=== PATIENT | female | born 1990 | race Caucasian/White ===

== ENCOUNTER 2019-11-21 01:53 | Inpatient (IN) ==
[2019-11-21 02:50] LABS: Hemoglobin 12.3 gm/dL (12.5-16.0); Mean Cell Volume 89.7 fl (78-100); Mean Corpuscular Hemoglobin 31.5 pg (27-31); Mean Corpuscular Hgb Conc 35.1 g/dl (32-36); Mean Platelet Volume 12.2 fl (8-12.5); Neutrophil # 8.2 K/mm3 (1.3-6.0); Neutrophil % 73.9 % (42-75.0); Platelet Count 152 K/mm3 (150-450); Red Cell Distribution Width 12.2 % (11.5-14.0); White Blood Count 11.1 K/mm3 (4.0-10.5)
[2019-11-21 03:05] LABS: INR 0.93 INR (0.92-1.08); Partial Thrombolplastin Time 22.6 Seconds (24-32); Prothrombin Time (Patient) 9.2 Seconds (9.1-10.7)
[2019-11-21] MEDS ORDERED: RINGER'S SOLUTION,LACTATED 1,000 ML IV ONE ×2 (03:24→10:15)
[2019-11-21] MEDS ORDERED: ONDANSETRON 4 MG TAB.RAPDIS PO PRN (03:24)
[2019-11-21] MEDS ORDERED: OXYTOCIN/DEXTROSE 5%-WATER 30 UNITS/500 ML BAG IV ONE ×2 (03:24→16:48)
[2019-11-21] MEDS ORDERED: RINGER'S SOLUTION,LACTATED 1,000 ML IV PRN (03:24)
[2019-11-21] MEDS ORDERED: BUPIVACAINE HCL/0.9 % NACL/PF 250 ML EP PRN ×2 (08:25→08:51)
[2019-11-21] MEDS ORDERED: NALOXONE HCL 1 MG/1 ML SYRG IV PRN ×2 (08:25→08:51)
[2019-11-21] MEDS ORDERED: ONDANSETRON HCL/PF 2 MG/ML VIAL IV PRN ×2 (08:25→08:51)
[2019-11-21] MEDS ORDERED: fentaNYL CITRATE/PF 50 MCG/ML AMPUL IT SCH ×2 (08:30→09:00)
--- NOTE | 2019-11-21 08:59 | HP ---
Chief Complaint - Chief Complaint Date of Service: 11/21/19 Time of Service: 08:52 Chief Complaint: vaginal bleeding History of Present Illness: 29 year old at 37w 1d who presented to labor and delivery complaining of bright red bleeding. She reports contractions. She denies loss of fluid. Fetus is active. Medical History (Last Reviewed 11/21/19 @ 08:53 by Violet Smith MD) Denson's palsy Onset Date: ~05/2014 Genital herpes Onset Date: ~2014 History of PFTs Onset Date: Unknown Lymphadenopathy Onset Date: ~02/17/14 Mononucleosis Onset Date: Unknown Pilonidal cyst Onset Date: ~03/14/09 Miladys Corona Shingles Onset Date: ~2014 Vocal cord paralysis Onset Date: Unknown voice and resonance disturbance Vulvar abscess Onset Date: ~03/14/13 Surgical History: Surgical History (Last Reviewed 11/21/19 @ 08:53 by Violet Smith MD) History of excision of pilonidal cyst Onset Date: ~03/18/09 Dr. Tinoco History of incision and drainage Onset Date: ~2015 Palani-vulvar abscess. , Ivonne Jean [place] teeth removed Onset Date: Unknown Family History: Family History (Last Reviewed 11/21/19 @ 08:53 by Violet Smith MD) Mother Alive and well Father Hyperlipemia Brother Alive and well Sister Alive and well Grandmother High cholesterol heart issues Social History: (Last Reviewed 11/21/19 @ 08:53 by Violet Smith MD) Social History: Marital status: household members: spouse current occupational status: employed current occupation: counselor current occupational exposures/hazards: No Highest education level completed: Master's degree Service: No Tobacco: Smoking Status: Never smoker Alcohol: alcohol intake: former alcohol intake frequency: a few times a month details: none since positive test Substance Use: substance use type: does not use Dietary Habits: caffeine: No caffeine comment: none since Review Of Systems (GEN) - Review of Systems Generalized/Overall Review: Present: No Symptoms Reported Genitourinary: Present: Other - vaginal bleeding Misc: All systems neg except as marked Allergies/Adverse Reactions: Allergies Allergy/AdvReac Type Severity Reaction Status Date / Time Sulfa (Sulfonamide AdvReac Intermediate RASH Verified 11/21/19 02:30 Antibiotics) minocycline AdvReac Mild DIZZINESS Verified 11/21/19 02:30 Home Medications: HOME MEDICATIONS prenat.vits,dereje,vcc-[id number] 1 tab PO DAILY 05/01/19 [Last Taken Unknown] breast pump See Rx Instructions .ROUTE .MEDSUPPLY #1 ea 08/21/19 [Last Taken Unknown] valacyclovir 500 mg tablet 1,000 mg PO DAILY 28 Days #56 tab 11/16/19 [Last Taken Unknown] Exam - Exam Vital Signs: Vital Signs - Last Taken Temp 36.8 C 11/21/19 02:15 Pulse 89 11/21/19 02:15 Resp 20 11/21/19 02:15 BP 125/88 11/21/19 02:15 Pulse Ox 99 11/21/19 02:15 Constitutional: Present: Alert, Oriented x3, Cooperative, No distress ENT Exam: Present: hearing grossly normal Eye Exam: bilateral eye: normal inspection Neck: Present: normal inspection Back Exam: Present: normal inspection Breasts: Present: Exam deferred Respiratory: Present: lungs clear, normal breath sounds, no respiratory distress Cardiovascular/Chest: Present: regular rate, rhythm Abdomen: Present: soft, nontender, nondistended /Rectal: Present: Other - 5/90/-1 AROM for bloody fluid Extremity: Present: non-tender, no calf tenderness Skin Exam: Present: normal color, warm/dry, no cyanosis Neurologic: Present: alert, normal mood/affect, oriented x 3 Appearance: Present: appropriate appearance, appropriate insight Eye contact: Present: cooperative, good eye contact, normal speech Thoughts: Present: normal thought pattern Diagnostic Studies: Abnormal Lab Results 11/21/19 11/21/19 Range/Units 02:45 02:45 WBC 11.1 H (4.0-10.5) K/mm3 RBC 3.90 L (4.2-5.4) M/mm3 Hgb 12.3 L (12.5-16.0) gm/dL Hct 35.0 L (37.0-47.0) % MCH 31.5 H (27-31) pg Immature Gran % (Auto) 0.50 H (0.001-0.429) % Immature Gran # (Auto) 0.06 H (0.000-0.0310) K/mm3 Lymphocytes % 18.5 L (20-51) % Neutrophils # 8.2 H (1.3-6.0) K/mm3 PTT (Denise) 22.6 L (24-32) Seconds Laboratory Results WBC 11.1 K/mm3 (4.0-10.5) H 11/21/19 02:45 RBC 3.90 M/mm3 (4.2-5.4) L 11/21/19 02:45 Hgb 12.3 gm/dL (12.5-16.0) L 11/21/19 02:45 Hct 35.0 % (37.0-47.0) L 11/21/19 02:45 MCV 89.7 fl (78-100) 11/21/19 02:45 MCH 31.5 pg (27-31) H 11/21/19 02:45 MCHC 35.1 g/dl (32-36) 11/21/19 02:45 RDW 12.2 % (11.5-14.0) 11/21/19 02:45 Plt Count 152 K/mm3 (150-450) 11/21/19 02:45 MPV 12.2 fl (8-12.5) 11/21/19 02:45 Immature Gran % (Auto) 0.50 % (0.001-0.429) H 11/21/19 02:45 Immature Gran # (Auto) 0.06 K/mm3 (0.000-0.0310) H 11/21/19 02:45 Neutrophils % 73.9 % (42-75.0) 11/21/19 02:45 Lymphocytes % 18.5 % (20-51) L 11/21/19 02:45 Monocytes % 5.6 % (0.0-9) 11/21/19 02:45 Eosinophils % 1.2 % (0.0-3.0) 11/21/19 02:45 Basophils % 0.3 % (0.0-1.0) 11/21/19 02:45 Nucleated RBC % 0.0 k/mm3 (0-1) 11/21/19 02:45 Neutrophils # 8.2 K/mm3 (1.3-6.0) H 11/21/19 02:45 Lymphocytes # 2.05 k/mm3 (1.5-3.5) 11/21/19 02:45 Monocytes # 0.6 k/mm3 (0.0-1.0) 11/21/19 02:45 Eosinophils # 0.1 k/mm3 (0.0-0.7) 11/21/19 02:45 Absolute Basophils 0.0 k/mm3 (0.0-0.1) 11/21/19 02:45 PT 9.2 Seconds (9.1-10.7) 11/21/19 02:45 INR (Anticoag Therapy) 0.93 INR (0.92-1.08) 11/21/19 02:45 PTT (Denise) 22.6 Seconds (24-32) L 11/21/19 02:45 Fibrinogen 374 mg/dL (202-388) 11/21/19 02:45 Blood Type O Positive 11/21/19 02:45 Antibody Screen Negative 11/21/19 02:45 Assessment/Plan - Narrative Narrative: 29 year old at 37w 1d 1. Placental abruption: normal abruption labs on admission. heart tracing reactive and reassuring. Continue to monitor bleeding. Have a room available for an emergent should the tracing deteriorate 2. Labor: the patient has made change on her own. AROM for augmentation of labor. Pitocin after epidural 3. GBS negative: prophylaxis not indicated 4. History of genital herpes: the patient was on prophylaxis - Assessment/Plan (1) 37 weeks gestation of Problem: Acute (2) Placental abruption Problem: Acute Qualifiers: Trimester: third trimester Qualified Code(s): O45.93 - Premature separation of placenta, unspecified, third trimester (3) History of herpes genitalis Problem: Acute (4) Rh(D) positive Problem: Acute
[2019-11-21] MEDS ORDERED: BUPIVACAINE HCL/PF 30 ML VIAL EP SCH (09:00)
--- NOTE | 2019-11-21 09:11 | ANES ---
Anesthesia Pre Procedure Eval Vitals/Labs: Last Vital Signs Temp 36.8 C 11/21/19 02:15 Pulse 89 11/21/19 02:15 Resp 20 11/21/19 02:15 BP 125/88 11/21/19 02:15 Pulse Ox 99 11/21/19 02:15 HOME MEDICATIONS prenat.vits,dereje,wrv-aiyt-skotv 1 tab PO DAILY 05/01/19 [Last Taken Unknown] breast pump See Rx Instructions .ROUTE .MEDSUPPLY #1 ea 08/21/19 [Last Taken Unknown] valacyclovir 500 mg tablet 1,000 mg PO DAILY 28 Days #56 tab 11/16/19 [Last Taken Unknown] Allergies/Adverse Reactions: Allergies Allergy/AdvReac Type Severity Reaction Status Date / Time Sulfa (Sulfonamide AdvReac Intermediate RASH Verified 11/21/19 02:30 Antibiotics) minocycline AdvReac Mild DIZZINESS Verified 11/21/19 02:30 - Planned Procedure Planned Procedure: LABOR epidural Medication List Reviewed:: Yes Allergies Verified: Yes Medical History (Last Reviewed 11/21/19 @ 08:53 by Violet Smith MD) Denson's palsy Onset Date: ~05/2014 Genital herpes Onset Date: ~2014 History of PFTs Onset Date: Unknown Lymphadenopathy Onset Date: ~02/17/14 Mononucleosis Onset Date: Unknown Pilonidal cyst Onset Date: ~03/14/09 Miladyspedro Corona Shingles Onset Date: ~2014 Vocal cord paralysis Onset Date: Unknown voice and resonance disturbance Vulvar abscess Onset Date: ~03/14/13 Surgical History (Last Reviewed 11/21/19 @ 08:53 by Violet Smith MD) History of excision of pilonidal cyst Onset Date: ~03/18/09 Dr. Tinoco History of incision and drainage Onset Date: ~2015 Palani-vulvar abscess. '14 ,'16 Ivonne Jean [place] teeth removed Onset Date: Unknown Family History (Last Reviewed 11/21/19 @ 08:53 by Violet Smith MD) Mother Alive and well Father Hyperlipemia Brother Alive and well Sister Alive and well Grandmother High cholesterol heart issues - Anesthesia Assessment and Plan ASA Class: PS, II Anesthesia Type Plan: Epidural
--- NOTE | 2019-11-21 09:26 | ANES ---
Post Anesthesia Assessment - Vital Signs Vitals: Last Vital Signs Temp 36.8 C 11/21/19 02:15 Pulse 89 11/21/19 02:15 Resp 20 11/21/19 02:15 BP 125/88 11/21/19 02:15 Pulse Ox 99 11/21/19 02:15 Airway Patency: Normal - Mental Status Level Of Consciousness: Awake - N/V Assessment Nausea/Vomiting Presence: None Dehydration:: No
--- NOTE | 2019-11-21 09:26 | ANES ---
Anesthesia Procedure Note Procedure Note: ANESTHESIA PROCEDURE NOTE Date of Procedure: 11/21/2019. Time of procedure: 914. Performed by: Jose De Jesus Jenkins CRNA [place] Fireman: None. Preprocedure diagnosis: Active labor. Post procedure diagnosis: Same. Procedure: Insertion of labor epidural. Indications: The patient is a 29-year-old female in active labor requesting labor epidural for pain management. Findings: See below. Details of the procedure: The patient was placed in a sitting position. DuraPrep as well as Betadine swabs X3 was applied to the patient's back. Patient was then draped in a sterile fashion. Lidocaine 1% was infiltrated to the skin and subcutaneous tissues at the level of the L3-4 interspace. The epidural space was identified using a 18-gauge Tuohy needle with [id number] technique. Epidural catheter was inserted to a depth of 10 centimeters at skin. Negative test dose was elicited using 3 mL of 1.5% preservative-free lidocaine plus epinephrine 1 200,000. The epidural catheter was then taped and secured in place. A loading dose of 8 mL of 0.25% preservative-free bupivacaine was administered to the epidural catheter after negative aspiration for blood and CSF. EBL: Minimal. Fluids: N/A. Specimen: N/A. Post procedure condition: The patient tolerated the procedure well. No complications were noted. Thank you for this consultation. Jose De Jesus Jenkins CRNA
[2019-11-21] MEDS ORDERED: TERBUTALINE SULFATE 1 MG/ML VIAL SC ONE ×2 (10:15→10:25)
[2019-11-21] MEDS ORDERED: BENZOCAINE/MENTHOL 81 SPRAY CAN TP PRN (16:48)
[2019-11-21] MEDS ORDERED: HYDROCORTISONE 30 APPL TUBE TP PRN (16:48)
[2019-11-21] MEDS ORDERED: GLYCERIN/WITCH HAZEL LEAF 40 APPL BOX TP PRN (16:48)
[2019-11-21] MEDS ORDERED: BISACODYL 10 MG SUPP.RECT RC PRN (16:48)
[2019-11-21] MEDS ORDERED: HYDROcodone/ACETAMINOPHEN 1 EACH TABLET PO PRN ×2 (16:48)
[2019-11-21] MEDS ORDERED: diphenhydrAMINE HCL 25 MG CAPSULE PO PRN (16:48)
[2019-11-21] MEDS ORDERED: SENNOSIDES 8.6 MG TABLET PO PRN (16:48)
--- NOTE | 2019-11-21 16:48 | OR ---
Operative Report - Dictated Report Narrative: Date of delivery: 11/21/2019 Time of delivery: 1610 Gender: male APGARS: 6/8 weight: 2581 grams Procedure: VAVD Description of the procedure: The patient is a 29 year old at 37w 1d who presented to labor and delivery with vaginal bleeding consistent with a donnell cental abruption. She made cervical change. Labor was augmented with AROM. The patient continued to make cervical change and did not require pitocin. She progressed to complete dilation. The patient was consented for vacuum delivery due to maternal exhaustion and lack of progress. The total vacuum application time was 80 seconds over two contractions. There were no pop offs. The patient delivered a viable male infant in direct OA presentation. Once the 's head was out the vacuum was removed. A tight nuchal cord was noted and it was cut at the perineum. The shoulders delivered without any difficulty followed by the rest of the . The was taken to the warmer for resuscitation. Cord blood was collected. A second degree perineal laceration was repaired in the standard fashion using 2-0 vicryl. A hymenal remnant was observed inferior to the urethra and the patient was consented for removal. This portion was excised with scissors. The area was repaired with a single figure of eight suture using 3-0 rapide suture. Hemostasis was adequate. The placenta was delivered by expression and appeared intact. EBL: 350 mL Complications: none Specimens: cord blood, placenta to pathology History for Definition: * The number of deliveries resulting in a live the patient experienced prior to current hospitalization * The previous delivery of live twins or any live multiple gestation is considered one live event. *If primagravida or nulliparous is documented select zero for the number of previous live births. Live Events: 0
[2019-11-21] MEDS ORDERED: MISOPROSTOL 200 MCG TABLET RC ONE (17:13)
[2019-11-21] MEDS: DOCUSATE SODIUM 100 MG CAPSULE PO SCH (20:35)
[2019-11-21] MEDS: IBUPROFEN 800 MG TABLET PO PRN (20:35)
[2019-11-22] MEDS: DOCUSATE SODIUM 100 MG CAPSULE PO SCH (07:05)
[2019-11-22] MEDS: IBUPROFEN 800 MG TABLET PO PRN (07:05)
[2019-11-22 07:31] VITALS: BP 132/90
--- NOTE | 2019-11-22 08:54 | PN ---
Subjective - Date and Time Seen Date: 11/22/19 Time: 08:52 Subjective Narrative: Patient without complaints Objective Objective Narrative: See vital signs - Review of Systems Generalized/Overall Review: Reports: No Symptoms Reported Misc: All systems neg except as marked - Vitals Vitals: Last Vital Signs Temp 36.6 C 11/22/19 07:15 Pulse 78 11/22/19 07:15 Resp 18 11/22/19 07:15 BP 132/90 H 11/22/19 07:15 Pulse Ox 98 11/22/19 07:15 - Exam Constitutional: Present: Alert, Oriented x3, Cooperative, No distress ENT Exam: Present: hearing grossly normal Abdomen: Present: soft, nontender, nondistended - fundus is firm Extremity: Present: non-tender, no calf tenderness Skin Exam: Present: normal color, warm/dry, no cyanosis Neurologic: Present: alert, normal mood/affect, oriented x 3 Appearance: Present: appropriate appearance, appropriate insight, neat Eye contact: Present: cooperative, good eye contact, normal speech Thoughts: Present: normal thought pattern Cauti Physician Documentation - Urinary Catheter Management Urethral (Abbott) Urethral Indwelling: No Date of Insertion: 11/21/19 Time of Insertion: 09:50 Date of Removal: 11/21/19 Time of Removal: 15:45 Assessment/Plan Plan Narrative: PPD 1 s/p VAVD Doing well Early discharge due to baby being transferred to [place] due to respiratory distress Detailed discharge instructions given Follow-up in 6 weeks or sooner for any other concerns - Problems/Diagnosis (1) 37 weeks gestation of Problem: Acute (2) Placental abruption Problem: Acute Qualifiers: Trimester: third trimester Qualified Code(s): O45.93 - Premature separation of placenta, unspecified, third trimester (3) History of herpes genitalis Problem: Acute (4) Rh(D) positive Problem: Acute
[2019-11-22] MEDS ORDERED: PRENATAL VITS96/IRON FUM/FOLIC 1 TAB TABLET PO SCH (09:00)
== END 2019-11-22 10:35 | disposition home or self-care (01) | DRG 768 ==
LOC: OBCLINIC 01:53 → OB 02:25
PROVIDERS: ADMIT Obstetrics & Gynecology; ATTEND Obstetrics & Gynecology
CPT/HCPCS: 36415; 59025; 85025; 85384; 85610; 85730; 86850; 88307; 88888